=== PATIENT | male | born 1980 | race Caucasian/White ===

== ENCOUNTER 2022-04-17 10:13 | Outpatient (REF) | payer OTHER, SELFPAY ==
[2022-04-17 12:57] VITALS: O2SAT 95
== END 2022-04-17 10:14 | disposition home or self-care (01) ==
LOC: HO.LAB 10:13
PROVIDERS: PCP Internal Medicine; Visit Provider Psychiatry & Neurology Neurology
DX: R42 Dizziness and giddiness (principal); E66.9 Obesity, unspecified; G43.119 Migraine with aura, intractable, without status migrainosus; G47.33 Obstructive sleep apnea (adult) (pediatric)
CPT/HCPCS: 36600; 82803; 99202

== ENCOUNTER → 2022-05-27 19:30 | Outpatient (REF) | payer MEDICARE, MEDICAID, SELFPAY | LOC: HO.SL 19:30 | PROVIDERS: PCP Internal Medicine; Visit Provider Psychiatry & Neurology Neurology | DX: E66.9 Obesity, unspecified (principal); G47.33 Obstructive sleep apnea (adult) (pediatric) | CPT/HCPCS: 95811 ==

== ENCOUNTER 2022-11-16 14:37 | Outpatient (AMB) | payer MEDICARE, MEDICAID, SELFPAY ==
[2022-11-16 14:40] VITALS: PULSE 91; O2SAT 93; BMI 62.0
--- NOTE | 2022-11-16 14:40 | MHC.OFFVIS ---
Intake Vital Signs 11/16/22 14:40 Height 5 ft 8 in Weight 407 lb 8 oz BMI 62.0 Position Sitting Pulse 91 Pulse Source Pulse Oximeter Pulse Oximetry (%) 93 Oxygen Delivery Method Room Air Intake Visit Reasons: 2m follow up dizziness - LVM Intake Note: Pt presents as a 2 month f/u for dizziness. Adaptive Physical Education Teacher Required: No Allergies ibuprofen Allergy (Intermediate, Verified 11/16/22 14:44) dermatitis chlorine Allergy (Uncoded 11/16/22 14:44) Rash HPI HPI Comments History of Present Illness Details 42 y/o male patient presents for follow up of sleep study. The split sleep study result was significant for severe degree of sleep apnea. The AHI was 72/hr and oxygen danny was 83%. Pt started CPAP but returned it, he did not toleate the CPAP. Sent new CPAP prescription with mask fitting session but pt did not responded. and the CPAP order was canceled. Pt did not remember anything he got letter from [facility]. Pt does not want to retry CPAP at this time. Pt is referred to management, but not started yet. He is an appointment with his dentist 12/17 Pt does not want to refer ENT for surgery option. [facility] Medical History Alcohol abuse Cholelithiasis DVT (deep venous thrombosis) Obesity Pulmonary embolism Restless legs syndrome (RLS) Surgical History H/O colonoscopy H/O shoulder surgery History of laparoscopic cholecystectomy History of surgery on lower extremity History of tonsillectomy Family History Mother Diabetes Father Diabetes Hypertension Stroke Maternal Grandmother Colon cancer Paternal Grandfather Lung cancer Social History (Updated 11/16/22 @ 14:45 by Sharon Thorpe CMA) Alcohol intake: current Alcohol intake frequency: holidays/special occasions only Patient Tobacco Use Status: Former Tobacco user Substance Use Type: Marijuana Review of Systems Const All systems reviewed & are unremarkable except as noted in HPI and below Physical Exam Vital Signs: Last Vital Signs Pulse 91 11/16/22 14:40 Pulse Ox 93 11/16/22 14:40 Oxygen Delivery Method Room Air 11/16/22 14:40 BMI result Body Mass Index 62.0 Const General: cooperative Nutritional Appearance: obese morbidly obese Orientation/consciousness: patient oriented x3 Limitations: physical limitations and ambulation with cane HEENT Head: Yes normal to inspection and No normocephalic Neck Neck: Yes no meningeal signs Neuro General: patient oriented x3, tone normal, moves all extremities, no meningeal signs and no focal motor deficits Cranial nerves: Yes Facial sensation intact/muscles of mastication intact, Yes Bilaterally intact EOM present, Yes Nystagmus not present, Yes Normal facial strength present and Yes Midline tongue present Cognition (Neuro): normal cognition Gait exam (Neuro): Antalgic gait present and Ataxic gait present Motor exam (neuro): 5/5 motor strength present throughout and Normal motor muscle tone present throughout Deep tendon reflexes (DTR's): Right triceps reflex intensity grade: 1+, Left triceps reflex intensity grade: 1+, Rt Biceps (C5, C6): 1+, Left biceps reflex intensity grade: 1+, Right brachioradialis reflex intensity grade: 1+, Left brachioradialis reflex intensity grade: 1+, Right patellar reflex intensity grade: 0 and Left patellar reflex intensity grade: 0 Assessment & Plan Assessment & Plan (1) Obstructive sleep apnea: Code(s): G47.33 - Obstructive sleep apnea (adult) (pediatric) Plan Continue to follow up with wt managment. Advised patient to sleep on his side, or use extra pillows to elevate his head when he sleep. Refer patient to dental sleep medicine to try oral appliance to treat NARAYAN. Coding Level of Care Code Est Pt Level 3 (39485) Diagnoses Obstructive sleep apnea G47.33
== END 2022-11-16 15:03 | disposition home or self-care (01) ==
PROVIDERS: Visit Provider Nurse Practitioner Family
DX: G47.33 Obstructive sleep apnea (adult) (pediatric) (principal)
CPT/HCPCS: 99213

== ENCOUNTER → 2022-11-16 14:37 | Outpatient (BNVA) | payer MEDICARE, MEDICAID, SELFPAY | PROVIDERS: Visit Provider Nurse Practitioner Family | DX: G47.33 Obstructive sleep apnea (adult) (pediatric) (principal) | CPT/HCPCS: 99212 ==

== ENCOUNTER 2023-05-19 14:25 | Outpatient (AMB) | payer OTHER, SELFPAY ==
--- NOTE | 2023-05-19 14:45 | A.OFFVIS_ITS ---
Intake Vital Signs 05/19/23 14:50 Height 5 ft 8 in Weight 365 lb 6 oz BMI 55.5 BP 130/80 Blood Pressure Location Lt brachial Position Sitting Pulse 60 Pulse Source Pulse Oximeter Pulse Oximetry (%) 96 Oxygen Delivery Method Room Air Intake Visit Reasons: 6m follow up dizziness-LVM Intake Note: Patient presents for six month F/U for dizziness. 'Still getting dizzy x2 a week with meds and still having migraines x1 a week with meds. Allergies ibuprofen Allergy (Intermediate, Verified 05/19/23 14:48) dermatitis chlorine Allergy (Uncoded 11/16/22 14:44) Rash HPI HPI Comments History of Present Illness Details 42 y/o male patient presents for follow up of NARAYAN. Pt reports he changed his diet, and lost 40 lb. Pt started CPAP but returned it, he did not toleate the CPAP. Sent new CPAP prescription with mask fitting session but pt did not responded. and the CPAP order was canceled. Pt did not remember anything he got letter from [facility]. Pt does not want to retry CPAP at this time. Pt reports he has migraine once a week, throbbing pain on his top of head. He also has constant neck pain, too due to herniated disc. [facility] Medical History Alcohol abuse Cholelithiasis DVT (deep venous thrombosis) Obesity Pulmonary embolism Restless legs syndrome (RLS) Surgical History History of tonsillectomy H/O colonoscopy History of surgery on lower extremity H/O shoulder surgery History of laparoscopic cholecystectomy Family History Mother Diabetes Father Diabetes Hypertension Stroke Maternal Grandmother Colon cancer Paternal Grandfather Lung cancer Social History Alcohol intake: current Alcohol intake frequency: holidays/special occasions only Patient Tobacco Use Status: Former Tobacco user Substance Use Type: Marijuana Review of Systems Const All systems reviewed & are unremarkable except as noted in HPI and below Physical Exam Vital Signs: Last Vital Signs Pulse 60 05/19/23 14:50 BP 130/80 05/19/23 14:50 Pulse Ox 96 05/19/23 14:50 Oxygen Delivery Method Room Air 05/19/23 14:50 BMI result Body Mass Index 55.5 Const General: cooperative Nutritional Appearance: obese morbidly obese Orientation/consciousness: patient oriented x3 Limitations: physical limitations and ambulation with cane HEENT Head: Yes normal to inspection and No normocephalic Neck Neck: Yes no meningeal signs Neuro General: patient oriented x3, tone normal, moves all extremities, no meningeal signs and no focal motor deficits Cranial nerves: Yes Facial sensation intact/muscles of mastication intact, Yes Bilaterally intact EOM present, Yes Nystagmus not present, Yes Normal facial strength present and Yes Midline tongue present Cognition (Neuro): normal cognition Gait exam (Neuro): Antalgic gait present and Ataxic gait present Motor exam (neuro): 5/5 motor strength present throughout and Normal motor muscle tone present throughout Deep tendon reflexes (DTR's): Right triceps reflex intensity grade: 1+, Left triceps reflex intensity grade: 1+, Rt Biceps (C5, C6): 1+, Left biceps reflex intensity grade: 1+, Right brachioradialis reflex intensity grade: 1+, Left brachioradialis reflex intensity grade: 1+, Right patellar reflex intensity grade: 0 and Left patellar reflex intensity grade: 0 Assessment & Plan Assessment & Plan (1) Obstructive sleep apnea: Code(s): G47.33 - Obstructive sleep apnea (adult) (pediatric) (2) Migraine with aura, intractable, without status migrainosus: Code(s): G43.119 - Migraine with aura, intractable, without status migrainosus Plan Continue to follow up with patient observation assistant for wt loss. Advised patient to sleep on his side, or use extra pillows to elevate his head when he sleep. Refer patient to dental sleep medicine to try oral appliance to treat NARAYAN. Advised patient to continue to take magnesium 400 mg qHS and vitmian B 2 400 mg daily for migraine prevention. Continue to use sumatriptan 100 mg as needed at onset of migraine. Orders: Referrals Dentistry Referral G47.33 - Obstructive sleep apnea (adult) (pediatric) Medications: Changed From riboflavin (vitamin B2) 400 mg PO QAM 30 tabs 6RF To riboflavin (vitamin B2) 400 mg PO QAM 90 tabs 3RF 90 days Coding Level of Care Code Est Pt Level 3 (96452) Diagnoses Obstructive sleep apnea G47.33 Migraine with aura, intractable, without status migrainosus G43.119
[2023-05-19 14:50] VITALS: BP 130/80; PULSE 60; O2SAT 96; BMI 55.5
== END 2023-05-19 15:09 | disposition home or self-care (01) ==
PROVIDERS: PCP Internal Medicine; Visit Provider Nurse Practitioner Family
DX: G47.33 Obstructive sleep apnea (adult) (pediatric) (principal); G43.119 Migraine with aura, intractable, without status migrainosus
CPT/HCPCS: 99213

== ENCOUNTER → 2023-05-19 14:25 | Outpatient (BNVA) | payer OTHER, MEDICAID, SELFPAY | PROVIDERS: PCP Internal Medicine; Visit Provider Nurse Practitioner Family | DX: G47.33 Obstructive sleep apnea (adult) (pediatric) (principal); G43.119 Migraine with aura, intractable, without status migrainosus | CPT/HCPCS: 99212 ==

== ENCOUNTER 2024-02-18 08:26 | Outpatient (AMB) | payer OTHER, SELFPAY ==
--- NOTE | 2024-02-18 08:25 | A.OFFVIS_ITS ---
Vital Signs 02/18/24 08:26 Height 5 ft 8 in Weight 339 lb BMI 51.5 BP 134/90 H Blood Pressure Location Lt brachial Position Sitting Pulse 65 Pulse Oximetry (%) 94 Oxygen Delivery Method Room Air Intake Visit Reasons: 4 mnts f/u Personal Vehicle Advisor Required: No Accompanied by: Self / Same As Patient Allergies ibuprofen Allergy (Intermediate, Verified 02/18/24 08:28) dermatitis chlorine Allergy (Uncoded 11/16/22 14:44) Rash Medication List - Last Reconciled 02/18/24 by CINDY Wong diclofenac sodium 1% 2 grams topical QID gabapentin 300 mg PO BEDTIME hydroxyzine pamoate 100 mg PO BEDTIME magnesium oxide 400 mg PO BEDTIME omeprazole 20 mg PO DAILY oxcarbazepine 150 mg PO BID riboflavin (vitamin B2) 400 mg PO QAM 90 days ropinirole 2 mg PO BEDTIME sumatriptan succinate 100 mg PO Q2-4H PRN 30 days torsemide 20 mg PO DAILY warfarin 5 mg PO DAILY zolpidem 10 mg PO BEDTIME PRN HPI Comments Details: 43-yr-old male presents for f/u visit of migraine and sleep s/s. Pt was previously seen by our former colleague, Demetrio Chavez NP. Pt denies any significant interval medical changes. He reports he generally does not sleep well, usually 3 hrs a night or no sleep at all. He has chronic nasal congestion. Working with a manager endoscopy through [employer]- and has lost 90 lbs. He is doing some light exercise- as he has back and knee pains. Does use ropinirole for RLS, which is helpful. Does have a h/o compulsiveness at times. Uses ambien at times- denies parasomnias, but then today realizes that he has slept shopped on-line. Pt reports he is having 4-5 migraine attacks per week, lasting 1 hr to 6 hrs. Sumatriptan is not always effective even w/ taking the 2nd dose. Baseline headache characteristics: Variable. Can be in eyes, temples, forehead, or occipital. Throbbing and pressure. A/w blurred vision, diplopia, foggy vision, photophobia, some osmophobia, nausea, occasional vomiting, confusion, external spinning dizziness, sometimes worsening nasal congestion, activity intolerance- depending on severity. Duration can be hours up to 7 days. [facility] Medical History Cholelithiasis DVT (deep venous thrombosis) Pulmonary embolism Alcohol abuse Restless legs syndrome (RLS) Obesity Surgical History History of tonsillectomy H/O colonoscopy History of surgery on lower extremity H/O shoulder surgery History of laparoscopic cholecystectomy Family History Mother Diabetes Father Diabetes Hypertension Stroke Maternal Grandmother Colon cancer Paternal Grandfather Lung cancer Social History Alcohol intake: current Alcohol intake frequency: holidays/special occasions only Patient Tobacco Use Status: Former Tobacco user Substance Use Type: Marijuana Physical Exam Vital Signs: Last Vital Signs Pulse 65 02/18/24 08:26 BP 134/90 H 02/18/24 08:26 Pulse Ox 94 02/18/24 08:26 Oxygen Delivery Method Room Air 02/18/24 08:26 BMI result Body Mass Index 51.5 Const General: cooperative and no acute distress Orientation/consciousness: patient oriented x3 Resp Effort & Inspection: normal respiratory effort and able to speak in complete sentences Neuro Other: Gait slow to stand, slow steady gait General: patient oriented x3 Cranial nerves: Yes CN's II-XII intact bilaterally Cognition (Neuro): normal cognition Psych Appearance: grossly normal Mental Status: mental status grossly normal Speech and movement: Normal speech and movement present Affect: normal affect Attitude: cooperative Assessment & Plan Assessment & Plan (1) Obstructive sleep apnea: Code(s): G47.33 - Obstructive sleep apnea (adult) (pediatric) Category: Medical (2) Chronic nasal congestion: Code(s): R09.81 - Nasal congestion Category: Medical (3) Chronic migraine without aura: Code(s): G43.709 - Chronic migraine without aura, not intractable, without status migrainosus Category: Medical Plan For NARAYAN and RLS and sleep difficulties: Pt advised to undergo ENT consult for alternate tx's for severe NARAYAN in setting of chronic nasal congestion (previous allergy testing neg). May continue ropinirole and prn ambien for now- Pt advised dopamine agonist can cause/increase compulsive behaviors, thus to monitor sleep shopping and for any increase in compulsivity. Reviewed general sleep education principles, including simple strategies to optimize sleep hygiene and sleep quality. List of sleep resources shared w/pt, such as the book Say Manjit to Insomnia by Dr Pj Powers. For overall headache management: Discussed importance of good self-care, including but not limited to maintaining a healthy diet, adequate fluid intake, adequate sleep, and engaging in regular physical activity. For acute headache treatment: Discussed importance of taking acute medications at the first sign of headache, however stressed importance of avoiding acute medication overuse (especially with combined headache medications). Stop Sumatriptan d/t pt has h/o a-fib, HTN. Trial Ubrogepant (Ubrelvy) 100mg tab, 1/2 - 1 tab (50-100mg) at onset of headache, may repeat in 2 hours. Max of 2 tabs (200mg) per 24 hours. May adjunct with OTC Tylenol 650mg q 4 hours, Ibuprofen 600mg q 6 hours, or Naproxen 440mg q 12 hrs prn. Do not take w/ Butalbital (Fioricet or Fiorinal). Potential adverse effects, include but are not limited to fatigue, nausea, dry mouth, constipation. Previous acute migraine medication trials: Sumatriptan- not always effective. Acute migraine medication contraindications: All triptans and DHE d/t h/o a-fib, DVTs/PE, HTN. For headache prevention medication: Discussed that preventative medications should be taken routinely as prescribed for best effect, it may take several weeks for full effect to take effect. Continue Riboflavin 400mg qam Continue Magnesium 400mg qhs Trial Topiramate 25-50mg qhs. Potential adverse effects of Topiramate, include but are not limited to fatigue, cognitive changes, paresthesias (tingling), vision changes, kidney stones. May continue Gabapentin 300mg qhs- for sleep and headache. Previous migraine prevention medication trials: none other Migraine prevention medication contraindications: would be cautious w/ any tx that may induce wt gain- as pt is actively participating in a wt loss program. Orders: Referrals Ear/Nose/Throat Referral G47.33 - Obstructive sleep apnea (adult) (pediatric), R09.81 - Nasal congestion Medications: New ubrogepant (Ubrelvy) take at onset of migraine, may repeat in 2hrs (may take w/ Tylenol) 50 - 100 mg (0.5 - 1 x 100 mg) PO ONCE PRN 16 tabs 3RF migraine headache 30 days topiramate 25 - 50 mg (1 - 2 x 25 mg) PO BEDTIME 60 tabs 3RF 30 days Coding Level of Care Code Est Pt Level 4 (87993) Diagnoses Obstructive sleep apnea G47.33 Chronic nasal congestion R09.81 Chronic migraine without aura G43.709
[2024-02-18 08:26] VITALS: BP 134/90; PULSE 65; O2SAT 94; BMI 51.5
== END 2024-02-18 09:39 | disposition home or self-care (01) ==
PROVIDERS: Absent Provider Nurse Practitioner Family; PCP Internal Medicine; Visit Provider Nurse Practitioner Family
DX: G47.33 Obstructive sleep apnea (adult) (pediatric) (principal); R09.81 Nasal congestion; G43.709 Chronic migraine without aura, not intractable, without status migrainosus
CPT/HCPCS: 99214

== ENCOUNTER → 2024-02-18 08:26 | Outpatient (BNVA) | payer OTHER, SELFPAY | PROVIDERS: Absent Provider Nurse Practitioner Family; PCP Internal Medicine; Visit Provider Nurse Practitioner Family | DX: G47.33 Obstructive sleep apnea (adult) (pediatric) (principal); G43.709 Chronic migraine without aura, not intractable, without status migrainosus; R09.81 Nasal congestion | CPT/HCPCS: 99212 ==

== ENCOUNTER 2024-05-29 07:43 | Outpatient (AMB) | payer OTHER, SELFPAY ==
--- NOTE | 2024-05-29 07:43 | MHC.OFFVIS ---
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 Accompanied by: Self / Same As Patient Allergies ibuprofen Allergy (Intermediate, Verified 02/18/24 08:28) dermatitis chlorine Allergy (Uncoded 11/16/22 14:44) Rash Medication List - Last Reconciled 05/29/24 by CINDY Wong diclofenac sodium 1% 2 grams topical QID gabapentin 300 mg PO BEDTIME 90 days hydroxyzine pamoate 100 mg PO BEDTIME lurasidone 40 mg PO DAILY magnesium oxide 400 mg PO BEDTIME 90 days omeprazole 20 mg PO DAILY oxcarbazepine 450 mg PO BID riboflavin (vitamin B2) 400 mg PO QAM 90 days ropinirole 2 mg PO BEDTIME topiramate 50 - 100 mg (1 - 2 x 50 mg) PO BEDTIME 90 days torsemide 20 mg PO DAILY ubrogepant (Ubrelvy) 50 - 100 mg (0.5 - 1 x 100 mg) PO ONCE PRN 30 days warfarin 5 mg PO DAILY zolpidem 10 mg PO BEDTIME PRN Do you need a note to return to daycare/school/sports/work: No HPI Comments Details: 43-yr-old male presents for f/u televeideo visit of migraine and sleep s/s. Pt denies any significant interval medical changes. He reports he generally his sleep varies. If he does not take his sleep medications, he will sleep 3-4 hours max. With his sleep medication, he can sleep up to 7 hrs- sometimes this feels like enough or sometimes not enough. He has chronic nasal congestion. He has not heard from the ENT office. 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 He is doing some light exercise- as he has back and knee pains. He has a PCP appt in 4 days to discuss a recent fall- slipped on his rug and twisted his left ankle- heard a pop, and also hurt his back and his knee. He describes his RLS S/S as urge to move the legs, almost to the point he shaking, creepy-crawling sensation, leg cramps, in need to get up and move. He has not had recent nutritional, iron studies, ferritin, labs in some time. He is on chronic warfarin therapy. Does use ropinirole 2mg qhs for RLS, which is helpful. Does have compulsive shopping at times. Using Gabapentin 300mg qhs for pain. Uses ambien at times- does not report recent parasomnias, but in the past has slept shopped on-line. Patient reports he is having less headaches. Pt reports he is having 3-4 migraine attacks per week, lasting 1 hr to 6 hrs. The migraine attack are his typical migraine, the pain tends to be in the back of his head, may be bilateral or more right sided. He started topiramate 25 mg q.h.s., tolerating well. He has started Ubrelvy, and states that it is more effective then the sumatriptan. Baseline headache characteristics: Variable. Can be in eyes, temples, forehead, or occipital. Throbbing and pressure. A/w blurred vision, diplopia, foggy vision, photophobia, some osmophobia, nausea, occasional vomiting, confusion, external spinning dizziness, sometimes worsening nasal congestion, activity intolerance- depending on severity. Duration can be hours up to 7 days. [facility] Medical History Cholelithiasis DVT (deep venous thrombosis) Pulmonary embolism Alcohol abuse Restless legs syndrome (RLS) Obesity Surgical History History of tonsillectomy H/O colonoscopy History of surgery on lower extremity H/O shoulder surgery History of laparoscopic cholecystectomy Family History Mother Diabetes Father Diabetes Hypertension Stroke Maternal Grandmother Colon cancer Paternal Grandfather Lung cancer Social History Alcohol intake: current Alcohol intake frequency: holidays/special occasions only Patient Tobacco Use Status: Former Tobacco user Substance Use Type: Marijuana Physical Exam Vital Signs: BMI result Body Mass Index 50.2 Const General: cooperative and no acute distress Orientation/consciousness: patient oriented x3 Resp Effort & Inspection: normal respiratory effort and able to speak in complete sentences Neuro General: patient oriented x3 Cognition (Neuro): normal cognition Psych Appearance: grossly normal Mental Status: mental status grossly normal Speech and movement: Normal speech and movement present Affect: normal affect Attitude: cooperative Telehealth Telehealth Telehealth Platform: [employer] Location of provider rendering services: practice address Location of patient: address on file Patient Identification confirmed using: Name, : Yes Telehealth method: video Patient verbally consented to treatment: Yes Patient verbally consented to billing insurance company: Yes Patient informed of any privacy concerns related to visit: Yes Minutes spent on Phone/Video with Pt.: 25 Assessment & Plan Assessment & Plan (1) Obstructive sleep apnea: Code(s): G47.33 - Obstructive sleep apnea (adult) (pediatric) Category: Medical (2) Chronic nasal congestion: Code(s): R09.81 - Nasal congestion Category: Medical (3) Chronic migraine without aura: Code(s): G43.709 - Chronic migraine without aura, not intractable, without status migrainosus Category: Medical (4) Restless legs syndrome (RLS): Code(s): G25.81 - Restless legs syndrome Category: Medical Plan For NARAYAN and RLS and sleep difficulties: We will follow-up on referral for ENT consult for alternate tx's for severe NARAYAN in setting of chronic nasal congestion (previous allergy testing neg). May continue gabapentin 300 mg q.h.s., ropinirole 2 mg q.h.s., and prn ambien 10 mg q.h.s. for now- Pt advised dopamine agonist can cause/increase compulsive behaviors, and zolpidem can increase risk for parasomnia- continueto monitor sleep shopping and for any increase in compulsive behaviors. We will mail patient a list of sleep resources, which includes information on recent a.m. publication ? Navigating life with restless leg ?by Dr. Cote. Check labs for common etiologies of RLS. Future considerations: Zepbound- would need referral to weight management clinic. For overall headache management: Discussed importance of good self-care, including but not limited to maintaining a healthy diet, adequate fluid intake, adequate sleep, and engaging in regular physical activity. For acute headache treatment: Continue Ubrogepant (Ubrelvy) 100mg tab, 1/2 - 1 tab (50-100mg) at onset of headache, may repeat in 2 hours. Max of 2 tabs (200mg) per 24 hours. May adjunct with OTC Tylenol 650-1000mg q 4-6 hours prn. Previous acute migraine medication trials: Sumatriptan- not always effective. Acute migraine medication contraindications: All triptans and DHE d/t h/o a-fib, DVTs/PE, HTN. For headache prevention medication: Discussed that preventative medications should be taken routinely as prescribed for best effect, it may take several weeks for full effect to take effect. Continue Riboflavin 400mg qam Continue Magnesium 400mg qhs Increase Topiramate 25 mg. q.h.s. 50-100 mg q.h.s- then would not increase further duet to history nephrolithiasis. Potential adverse effects of Topiramate, include but are not limited to fatigue, cognitive changes, paresthesias (tingling), vision changes, kidney stones. May continue Gabapentin 300mg qhs- for sleep and headache. Previous migraine prevention medication trials: none other Migraine prevention medication contraindications: would be cautious w/ any tx that may induce wt gain- as pt is actively participating in a wt loss program. Orders: Orders Complete Blood Count Auto Diff Today E66.9 - Obesity, unspecified, G25.81 - Restless legs syndrome, R20.2 - Paresthesia of skin, R53.83 - Other fatigue, Z79.01 - manager long term care (current) use of anticoagulants IRON PROFILE Today E66.9 - Obesity, unspecified, G25.81 - Restless legs syndrome, R20.2 - Paresthesia of skin, R53.83 - Other fatigue, Z79.01 - manager long term care (current) use of anticoagulants Ferritin Today E66.9 - Obesity, unspecified, G25.81 - Restless legs syndrome, R20.2 - Paresthesia of skin, R53.83 - Other fatigue, Z79.01 - skilled nursing (current) use of anticoagulants Vitamin B12 Today E66.9 - Obesity, unspecified, G25.81 - Restless legs syndrome, R20.2 - Paresthesia of skin, R53.83 - Other fatigue, Z79.01 - skilled nursing (current) use of anticoagulants Vitamin B1 Today E66.9 - Obesity, unspecified, G25.81 - Restless legs syndrome, R20.2 - Paresthesia of skin, R53.83 - Other fatigue, Z79.01 - manager long term care (current) use of anticoagulants Folate Today E66.9 - Obesity, unspecified, G25.81 - Restless legs syndrome, R20.2 - Paresthesia of skin, R53.83 - Other fatigue, Z79.01 - manager long term care (current) use of anticoagulants Magnesium Today E66.9 - Obesity, unspecified, G25.81 - Restless legs syndrome, R20.2 - Paresthesia of skin, R53.83 - Other fatigue, Z79.01 - manager long term care (current) use of anticoagulants Erythrocyte Sedimentation Rate Today E66.9 - Obesity, unspecified, G25.81 - Restless legs syndrome, R20.2 - Paresthesia of skin, R53.83 - Other fatigue, Z79.01 - manager long term care (current) use of anticoagulants Vitamin D 25-OH (D2 and D3) Today E66.9 - Obesity, unspecified, G25.81 - Restless legs syndrome, R20.2 - Paresthesia of skin, R53.83 - Other fatigue, Z79.01 - skilled nursing (current) use of anticoagulants Comprehensive Met. Panel Today E66.9 - Obesity, unspecified, G25.81 - Restless legs syndrome, R20.2 - Paresthesia of skin, R53.83 - Other fatigue, Z79.01 - manager long term care (current) use of anticoagulants Vitamin B6 Today E66.9 - Obesity, unspecified, G25.81 - Restless legs syndrome, R20.2 - Paresthesia of skin, R53.83 - Other fatigue, Z79.01 - manager long term care (current) use of anticoagulants Hemoglobin A1c Today E66.9 - Obesity, unspecified, G25.81 - Restless legs syndrome, R20.2 - Paresthesia of skin, R53.83 - Other fatigue, Z79.01 - skilled nursing (current) use of anticoagulants TSH reflex Free T4 Today E66.9 - Obesity, unspecified, G25.81 - Restless legs syndrome, R20.2 - Paresthesia of skin, R53.83 - Other fatigue, Z79.01 - manager long term care (current) use of anticoagulants CRP High Sensitivity Today E66.9 - Obesity, unspecified, G25.81 - Restless legs syndrome, R20.2 - Paresthesia of skin, R53.83 - Other fatigue, Z79.01 - manager long term care (current) use of anticoagulants Medications: New topiramate 50 - 100 mg (1 - 2 x 50 mg) PO BEDTIME 90 days 180 tabs 1RF Changed From gabapentin 300 mg PO BEDTIME 30 caps 6RF To gabapentin 300 mg PO BEDTIME 90 days 90 caps 1RF From magnesium oxide 400 mg PO BEDTIME 30 tabs 6RF To magnesium oxide 400 mg PO BEDTIME 90 days 90 tabs 3RF Refilled ubrogepant (Ubrelvy) take at onset of migraine, may repeat in 2hrs (may take w/ Tylenol) 50 - 100 mg (0.5 - 1 x 100 mg) PO ONCE 30 days PRN 16 tabs 6RF migraine headache Discontinued topiramate Discontinued Reason: Doctor's Order 25 - 50 mg (1 - 2 x 25 mg) PO BEDTIME 30 days 60 tabs 3RF Coding Level of Care Code Tele Est Pt Level 4 (08589) Diagnoses Obstructive sleep apnea G47.33 Chronic nasal congestion R09.81 Chronic migraine without aura G43.709 Restless legs syndrome (RLS) G25.81
--- OUTSIDE RECORDS SUMMARY | 2024-05-29 07:45 | XMS_ITS | Encounter Summary ---
Author Organization [facility] Address [address] [place] [address] Care Team Providers Care Medical Parasitologist Name Role Phone Latoya Schmidt DO Primary Care Provider [phone] Encounter Details Date Type Department Care Team (Latest Contact Info) Description 05/19/2024 Anticoagulation - Warfarin Visit Coumadin Clinic [facility] [address] [place] [address] Haylie Copeland LPN Deep vein thrombosis (DVT) of lower extremity, unspecified chronicity, unspecified laterality, unspecified vein (CMS/HCC) (Primary Dx); Pulmonary embolism and infarction (CMS/HCC) Social History Tobacco Use Types Packs/Day Years Used Date Smoking Tobacco: Former Cigarettes Smokeless Tobacco: Never Alcohol Use Standard Drinks/Week Comments Yes 0 (1 standard drink = 0.6 oz pur e alcohol) Sex and Gender Information Value Date Recorded Sex Assigned at Not on file Gender Identity Not on file Sexual Orientation Not on file Job Start Date Occupation Industry Not on file Not on file Not on file documented as of this encounter Plan of Treatment Upcoming Encounters Date Type Department Care Team (Late st Contact Info) Description 06/02/2024 2:45 PM EST Office Visit Internal Medicine - [address] [phone] Aida Rubio NP [address] [place], [place] documented as of this encounter Visit Diagnoses Diagnosis Deep vein thrombosis (DVT) of lower extremity, unspecified chronicity, unspecified laterality, unspecified vein (CMS/HCC)- Primary Pulmonary embolism and infarction (CMS/HCC) Other pulmonary embolism and infarction documented in this encounter Care Teams Medical Parasitologist Relationship Specialty Start Date End Date Latoya Schmidt DO [address] [facility] [place] [address] PCP - General 11/17/22 documented as of this encounter
--- OUTSIDE RECORDS SUMMARY | 2024-05-29 07:45 | XMS_ITS | Encounter Summary ---
Author Organization [facility] Address [address] [place] [address] Care Team Providers Care Intelligence Manager Name Role Phone Latoya Schmidt DO Primary Care Provider Reason for Visit * Reason Onset Date Comments Coagulation Disorder 05/19/2024 Non consist ent Inr's Has a short range 2.5-3.00 Abnormal Lab 05/19/2024 Encounter Details Date Type Department Care Team (Late st Contact Info) Description 05/19/2024 Telephone Coumadin Clinic [facility] [address] [place] [address] Haylie Copeland LPN Coagulation Disorder (Non consistent Inr's Has a short range 2.5-3.00 ); Abnormal Lab Social History Tobacco Use Types Packs/Day Years [...] on file documented as of this encounter Progress Notes * Aida Rubio NP - 05/19/2024 1:55 PM EST Would still target INR 2.5- 3.0. Might be due to his diet * Haylie Copeland LPN - 05/19/2024 1:37 PM EST Patient has an appointment 06/02/2024 He has a hx of non consistent Inr's He has a short range 2.5-3.00 I am not sure of the reasoning Is there any counter indications for increasing the range 2.5-3.5 ? PE / DVT Please advise documented in this encounter Plan of Treatment Upcoming Encounters Date Type Department Care Team (Late st Contact Info) Description 06/02/2024 2:45 PM EST [facility] [address] [place] [address] Aida Rubio, CRISTI [address] [place] [address] documented as of this encounter Visit Diagnoses Not on filedocumented in this encounter Care Teams Intelligence Manager Relationship Specialty Start Date End Date Latoya Schmidt DO [address] [place] [id number] PCP - General 11/17/22 documented as of this encounter
--- OUTSIDE RECORDS SUMMARY | 2024-05-29 07:45 | XMS_ITS | Clinical Summary ---
Author Organization [address] Address [address] [place] [phone] Phone Care Team Providers Care Branch Services Manager Name Role Phone Leigh Schmidta Primary Care Provider [phone] Allergies Active Allergy Reactions Criticality Noted Date Comments Chlorine 05/27/2016 Ibuprofen Dermatitis,Rash 01/05/2020 Medications Medication Sig Dispensed Refills Start Date End Date Status gabapentin (NEURONTIN) 300 mg capsule Take 1 Capsule by mouth at bedtime. 09/14/2022 Active hydrOXYzine pamoate (VISTARIL) 50 mg capsule Take 1 Capsule by mouth at bedtime. 09/14/2022 Active hydrOXYzine pamoate (VISTARIL) 25 mg capsule Take 1 Capsule by mouth at bedtime. 09/14/2022 Active magnesium oxide (MAG-OX) 400 mg (241.3 elemental magnesium) tablet TAKE 1 TABLET BY MOUTH AT BEDTIME 08/13/2022 Active SUMAtriptan (IMITREX) 25 mg tablet Take 1 tablet (25 mg total) by mouth as needed. 08/19/2022 Active OXcarbazepine (TRILEPTAL) 300 mg tablet Take 1 tablet (300 mg total) by mouth 2 (two) times a day. 09/14/2022 Active OXcarbazepine (TRILEPTAL) 150 mg tablet Take 1 tablet (150 mg total) by mouth 2 (two) times a day. 09/14/2022 Active rOPINIRole (REQUIP) 1 mg tablet Take 1 Tablet by mouth at bedtime. 09/14/2022 Active torsemide (DEMADEX) 20 mg tablet Take 1 tablet (20 mg total) by mouth 1 (one) time each day. 08/14/2022 Active lurasidone (LATUDA) 20 mg tablet Take 20 mg by mouth daily. 09/14/2022 Active diclofenac (VOLTAREN) 1 % topical gel Apply 1 g topically 3 times daily. 12/13/2021 Active warfarin (COUMADIN) 5 mg tablet TAKE 1&1/2 TO 2 TABLETS BY MOUTH DAILY. DIRECTED. 180 tablet 1 03/20/2024 Active Active Problems Problem Noted Date Diagnosed Date Morbid obesity with BMI of 50.0-59.9, adult 07/2023 Obstructive sleep apnea 08/11/2021 Overview (01/28/2024): [facility] Home sleep test 07/24/2021; weight 375; BMI 58. AHI 6. 3 central apnea and 32 hypopneas. Average oxygen saturation 91% with oxygen danny 86%. Obstructive sleep apnea-mild with out nocturnal hypoxemia; mostly hypopneas based on 2021 home sleep test. 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 Obesity 10/14/2005 Encounters Date Type Department Care Team Description 05/19/2024 Telephone Coumadin Clinic [facility] [address] [place] [phone] Haylie Copeland LPN Coagulation Disorder (Non consistent Inr's Has a short range 2.5-3.00 ); Abnormal Lab 05/19/2024 Anticoagulation - Warfarin Visit Coumadin [facility] [address] [place] [phone] Haylie Copeland LPN Deep vein thrombosis (DVT) of lower extremity, unspecified chronicity, unspecified laterality, unspecified vein (CMS/HCC) (Primary Dx); Pulmonary embolism and infarction (CMS/HCC) 05/11/2024 Anticoagulation - Warfarin Visit Coumadin [address] [phone] Haylie Copeland LPN Deep vein thrombosis (DVT) of lower extremity, unspecified chronicity, unspecified laterality, unspecified vein (CMS/HCC) (Primary Dx); Pulmonary embolism and infarction (CMS/HCC) 04/25/2024 Anticoagulation - Warfarin Visit Coumadin [facility] [address] [place] [phone] Haylie Copeland LPN Deep vein thrombosis (DVT) of lower extremity, unspecified chronicity, unspecified laterality, unspecified vein (CMS/HCC) (Primary Dx); Pulmonary embolism and infarction (CMS/HCC) 04/17/2024 Anticoagulation - Warfarin Visit Coumadin [address] [phone] Haylie Copeland LPN Deep vein thrombosis (DVT) of lower extremity, unspecified chronicity, unspecified laterality, unspecified vein (CMS/HCC) (Primary Dx); Pulmonary embolism and infarction (CMS/HCC) 04/06/2024 Anticoagulation - Warfarin Visit Coumadin [address] [phone] Dorothy Anton LPN Deep vein thrombosis (DVT) of lower extremity, unspecified chronicity, unspecified laterality, unspecified vein (CMS/HCC) (Primary Dx); Pulmonary embolism and infarction (CMS/HCC) 04/05/2024 Telephone Internal Medicine - [address] [place], [place] [phone] Latoya Schmidt, Coagulation Disorder 03/22/2024 Anticoagulation - Warfarin Visit Coumadin Clinic [address] [phone] Sadie Galan LPN Deep vein thrombosis (DVT) of lower extremity, unspecified chronicity, unspecified laterality, unspecified vein (CMS/HCC) (Primary Dx); Pulmonary embolism and infarction (CMS/HCC) 03/16/2024 Anticoagulation - Warfarin Visit Coumadin Clinic - [facility] [address] [place], [place] [phone] Haylie Copeland LPN Deep vein thrombosis (DVT) of lower extremity, unspecified chronicity, unspecified laterality, unspecified vein (CMS/HCC) (Primary Dx); Pulmonary embolism and infarction (CMS/HCC) from Last 3 Months Immunizations Name Administration Dates Next Due H1N1 Inj Preservative Free 04/18/2009 Influenza Quadravalent, MDCK , 0.5ml, preservative free (Flucelvax) 6mo and older 01/05/2020 Influenza trivalent, with pr eservative (Fluzone; Afluria) 6mo and older 04/18/2009,01/24/2009 PPD Test 02/23/2005 Td Tetanus diptheria (Tdvax) 7yo and older 01/04 Tdap Tetanus diptheria acell ular pertussis (Boostrix; Adacel) 7yo and older 01/24/2009 Surgical History Surgery Date Site/Laterality Comments CHOLECYSTECTOMY 12/26/2009 PROCEDURE: HISTORICAL CHOLECYSTECTOMY; COMMENT: [facility] SHOULDER SURGERY 06/04/2010 PROCEDURE: HISTORICAL SHOULDER SURGERY; COMMENT: [facility] OTHER SURGICAL HISTORY PROCEDURE: [place] ANES MAJOR LOWER ABDOMINAL VESSELS IVC LIGATION; COMMENT: Charles LEG SURGERY PROCEDURE: HISTORICAL LEG SURGERY; COMMENT: Endovascular Sclerotherapy COLONOSCOPY 11/24/2018 PROCEDURE: HISTORICAL COLONOSCOPY; COMMENT: Visually normal; random biopsies obtained. Terminal ileum totally normal. Biopsies = normal. 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 DX:Other specified congenital anomalies Other pulmonary embolism and infarction 09/13/2006 DX:Other pulmonary embolism and infarction; COMMENT: 08/27/06 Urolithiasis 02/23/2008 DX:Urolithiasis; COMMENT: Pyelonephritis 08/31 AVM (arteriovenous malformation) 03/09/2008 DX:AVM (arteriovenous malformation); COMMENT: Right leg Hematuria 06/15/2008 DX:Hematuria; CO MMENT: [place]; w/u neg 06/04 Family History Medical History Relation Name Comments Diabetes Father Hypertension Father Other: [place], stroke Father Colon cancer Maternal Grandmother Other: inflammatory bowel disease Maternal Grandmother Diabetes Mother Colon cancer Other cousin maternal Lung cancer Paternal Grandfather Blindness Neg Hx Cataracts Neg Hx Glaucoma Neg Hx Macular degeneration Neg Hx Strabismus Neg Hx Relation Name Status Comments Father Maternal Grandmother Mother Other cousin Alive Paternal Grandfather Social History Tobacco Use Types Packs/Day Years [...] file Not on file Not on file Obstetrics History Last Filed Vital Signs Vital Sign Reading Time Taken Comments Blood Pressure 125/80 06/25/2023 2:38 PM EST aut o Pulse 80 06/25/2023 2:38 PM EST Temperature - - Respiratory Rate - - Oxygen Saturation - - Inhaled Oxygen Concentration - - Weight 149 kg (328 lb) 12/07/2023 4:10 PM EDT Height 172.7 cm (5' 8 ) 12/07/2023 4:10 PM EDT Body Mass Index 49.87 12/07/2023 4:10 PM EDT Plan of Treatment Upcoming Encounters Date Type Department Care Team (Late st Contact Info) Description 06/02/2024 2:45 PM EST Office Visit Internal Medicine - [address] [phone] Aida Rubio NP [address] [place] [phone] Health Maintenance Due Date Last Done Comments Hepatitis A Vaccines (1 of 2 - Risk 2-dose series) 1997 Hepatitis B Vaccines (1 of 3 - 19+ 3-dose series) 1997 Colorectal Cancer Screening: Colonoscopy 03/29/2022 Hepatitis C Screening 03/29/2022 Medicare Annual Wellness Visit 03/29/2022 Social Influencers of Health Screening 03/29/2022 COVID-19 Vaccine ( season) 2023 Influenza Vaccine (#1) 2023 0, 01/25/2017, 04/18/2009, Additional history exists Depression Screening 06/24/2024 06/25/2023 Cholesterol Screening (Lipid Panel) 06/24/2028 06/25/2023 DTaP,Tdap,and Td Vaccines (3 - Td or Tdap) 01/04/2030 01/05/2020, 01/24/2009 HIV Screening Completed 12/15/2004 Pneumococcal Vaccine: Pediatrics (0 to 5 Years) and At-Risk Patients (6 to 64 Years) Aged Out 12/31/2013, 03/13/2008 No longer eligibl e based on patient's age to complete this topic HIB Vaccines Aged Out No longer eligi ble based on patient's age to complete this topic HPV Vaccines Aged Out No longer eligi ble based on patient's age to complete this topic IPV Vaccines Aged Out No longer eligi ble based on patient's age to complete this topic MMR Vaccines Aged Out No longer eligi ble based on patient's age to complete this topic Meningococcal ACWY Vaccine Aged Out N o longer eligible based on patient's age to complete this topic RSV Immunization Patients Under 20 months Aged Out No longer eligible based on patient's age to complete this topic Varicella Vaccines Aged Out No longer eligible based on patient's age to complete this topic Procedures Procedure Name Priority Date/Time Associated Diagnosis Comments PROTHROMBIN TIME WITH INR Routine 05/18/2024 2:49 PM EST Deep vein thrombosis (DVT) of lower extremity, unspecified chronicity, unspecified laterality, unspecified vein (CMS/HCC) Pulmonary embolism and infarction (CMS/HCC) PROTHROMBIN TIME WITH INR Routine 05/10/2024 2:47 PM EST Deep vein thrombosis (DVT) of lower extremity, unspecified chronicity, unspecified laterality, unspecified vein (CMS/HCC) Pulmonary embolism and infarction (CMS/HCC) PROTHROMBIN TIME WITH INR Routine 04/25/2024 10:11 AM EST Deep vein thrombosis (DVT) of lower extremity, unspecified chronicity, unspecified laterality, unspecified vein (CMS/HCC) Pulmonary embolism and infarction (CMS/HCC) PROTHROMBIN TIME WITH INR Routine 04/17/2024 1:03 PM EST Deep vein thrombosis (DVT) of lower extremity, unspecified chronicity, unspecified laterality, unspecified vein (CMS/HCC) Pulmonary embolism and infarction (CMS/HCC) PROTHROMBIN TIME WITH INR Routine 04/06/2024 1:36 PM EST Deep vein thrombosis (DVT) of lower extremity, unspecified chronicity, unspecified laterality, unspecified vein (CMS/HCC) Pulmonary embolism and infarction (CMS/HCC) PROTHROMBIN TIME WITH INR Routine 03/22/2024 1:17 PM EST [facility] (current) use of anticoagulants DEPRESSION SCREENING Routine 06/25/2023 LIPID PANEL Routine 06/25/2023 HIV SCREENING Routine 12/15/2004 from Last 3 Months or Most Recently Relevant to Health Maintenance Results * (ABNORMAL) Prothrombin time with INR (05/18/2024 2:49 PM EST) Only the most recent of6 resultswithin the time period is included. Protime 37.3(H) 10.6 - 13.9 sec LAB COAGULATION METHOD 05/18/2024 6:22 PM EST [facility] INR 3.0 LAB COAGULATION METHOD 05/18/2024 6:22 PM EST [facility] Blood Venous blood specimen / Unknown Venipuncture / Unknown 05/18/2024 2:49 PM EST 05/18/2024 2:49 PM EST Latoya Schmidt DO LAB BLOOD ORDERABLES [facility] ([facility] [address] [place] [address], * Depression Screening (06/25/2023) Depression Screening abstracted Historical Provider MD TIJERINA MAINTENYURI E * (ABNORMAL) Lipid panel (06/25/2023) LDL/HDL Ratio 5(A) 0 - 4 Triglycerides 94 0 - 150 mg/dL Cholesterol 195 0 - 200 mg/dL HDL 39(A) 40 mg/dL LDL Cholesterol 138(A) 0 - 100 mg/dL Blood Venous blood specimen / Unknown Historical Provider LAB BLOOD ORDERAB LES * HIV Screening (12/15/2004) HIV Screening abstracted Historical Provider MD TIJERINA MAINMAYNOR E from Last 3 Months or Most Recently Relevant to Health Maintenance Care Teams Branch Services Manager Relationship Specialty Start Date End Date Latoya Schmidt DO [address] [place] [address] PCP - General 11/17/22
--- OUTSIDE RECORDS SUMMARY | 2024-05-29 07:45 | XMS_ITS | Encounter Summary ---
Author Organization [facility] Address [address] [place] [address] Care Team Providers Care Paint Formulator Name Role Phone Latoya Schmidt DO Primary Care Provider [phone] Encounter Details Date Type Department Care Team (Latest Contact Info) Description 04/25/2024 Anticoagulation - Warfarin Visit Coumadin Clinic [facility] [address] [place] [address] Haylie Copeland LPN Deep vein [...] PM EST Office Visit Internal Medicine - [address] [phone] Aida Rubio NP [address] [place], [place] documented as of this encounter Visit Diagnoses Diagnosis Deep vein thrombosis (DVT) of lower extremity, unspecified chronicity, unspecified laterality, unspecified vein (CMS/HCC)- Primary Pulmonary embolism and infarction (CMS/HCC) Other pulmonary embolism and infarction documented in this encounter Care Teams Paint Formulator Relationship Specialty Start Date End Date Latoya Schmidt DO [address] [facility] [place] [address] PCP - General 11/17/22 documented as of this encounter
--- OUTSIDE RECORDS SUMMARY | 2024-05-29 07:45 | XMS_ITS | Clinical Summary ---
Author Organization [facility] Address [address] [address] Care Team Providers Care Tire Building Supervisor Name Role Phone Lady Michelle Primary Care Provider [phone] Social History Tobacco Use Types Packs/Day Years Used Date Smoking Tobacco: Never Assessed Sex and Gender Information Value Date Recorded Sex Assigned at Not on file Legal Sex Male 10:27 AM EDT Gender Identity Not on file Sexual Orientation Not on file Plan of Treatment Health Maintenance Due Date Last Done Comments Hepatitis B Vaccine (1 of 3 - 19+ 3-dose series) 1997 Pneumococcal Vaccine: Pediat rics (0 to 5 Years) and At-Risk Patients (6 to 64 Years) (3 of 3 - PCV) 12/31/2014 12/31/2013, 03/13/2008 Influenza Vaccine (#1) 2023 01/05/2020 Insurance MEDICAID Care Teams Tire Building Supervisor Relationship Specialty Start Date End Date Lady Michelle [address] [place] [address] PCP - General Internal Medicine 11/28/21
--- OUTSIDE RECORDS SUMMARY | 2024-05-29 07:45 | XMS_ITS | Encounter Summary ---
Author Organization [facility] Address [address] [place] [address] Care Team Providers Care Hospitalist Name Role Phone Latoya Schmidt DO Primary Care Provider [phone] Encounter Details Date Type Department Care Team (Latest Contact Info) Description 05/11/2024 Anticoagulation - Warfarin Visit Coumadin Clinic - [address] [phone] Haylie Copeland LPN Deep vein thrombosis (DVT) [...] PM EST Office Visit Internal Medicine - [address] [phone] Aida Rubio NP [address] [place] [address] documented as of this encounter Visit Diagnoses Diagnosis Deep vein thrombosis (DVT) of lower extremity, unspecified chronicity, unspecified laterality, unspecified vein (CMS/HCC)- Primary Pulmonary embolism and infarction (CMS/HCC) Other pulmonary embolism and infarction documented in this encounter Care Teams Hospitalist Relationship Specialty Start Date End Date Latoya Schmidt DO [address] [place], [place] [address] [address] PCP - General 11/17/22 documented as of this encounter
[2024-05-29 07:49] VITALS: BMI 50.2
== END 2024-05-29 15:40 | disposition home or self-care (01) ==
PROVIDERS: PCP Internal Medicine; Visit Provider Nurse Practitioner Family
DX: G47.33 Obstructive sleep apnea (adult) (pediatric) (principal); R09.81 Nasal congestion; G43.709 Chronic migraine without aura, not intractable, without status migrainosus; G25.81 Restless legs syndrome
CPT/HCPCS: 99214

== ENCOUNTER 2024-11-27 07:51 | Outpatient (AMB) | payer OTHER, SELFPAY ==
--- OUTSIDE RECORDS SUMMARY | 2024-11-27 07:54 | XMS_ITS | Encounter Summary ---
Author Organization [facility] Address [address] [place] [id number] Phone Care Team Providers Care Simonizer Name Role Phone Lady Michelle MD Primary Care Provider [phone] Encounter Details Date Type Department Care Team (Late st Contact Info) Description 11/23/2021 Procedure [facility] [address] [place] [address] Social History Tobacco Use Types Packs/Day Years Used Date Smoking Tobacco: Never Smokeless Tobacco: Never Alcohol Use Standard Drinks/Week Comments Yes 0 (1 standard drink = 0.6 oz pur e alcohol) Sex and Gender Information Value Date Recorded Sex Assigned at Male 08/06/2020 1:30 PM EDT Legal Sex Male 8:03 PM EST Gender Identity Male 08/06/2020 1:30 PM EDT Sexual Orientation Straight 09/09/2021 4: 01 PM EDT documented as of this encounter Plan of Treatment Not on file documented as of this encounter Visit Diagnoses Not on filedocumented in this encounter Additional Health Concerns Infection Onset Date Last Indicated Resolved Time CoV-Risk Comment:Per note documentation 11/22/2021 11/22/2021 6:51 AM EDT documented as of this encounter Care Teams Simonizer Relationship Specialty Start Date End Date Lady Michelle MD [address] [place] [address] PCP - General Internal Medicine 07/31/20 documented as of this encounter Additional Source Comments The information contained in this document represents components of the legal health record. It is not the complete legal health record.[facility]
--- OUTSIDE RECORDS SUMMARY | 2024-11-27 07:54 | XMS_ITS ---
Author Name [facility] Organization Unknown Care Team Organization Name Specialty Phone Email Start Date End [facility]en [facility] Lady Michelle Primary Care 03/03/2022 4
--- OUTSIDE RECORDS SUMMARY | 2024-11-27 07:54 | XMS_ITS | Clinical Summary ---
Author Organization [address] Address [address] [place] [phone] Phone Care Team Providers Care Outpatient Surgery Rn Name Role Phone Latoya Schmidt Primary Care Provider [phone] Allergies Active Allergy Reactions Criticality Noted Date Comments Chlorine 05/27/2016 Ibuprofen Dermatitis,Rash 01/05/2020 Medications gabapentin (NEURONTIN) 300 mg capsule Take 1 Capsule by mouth at bedtime. 3 Active hydrOXYzine pamoate (VISTARIL) 50 mg capsule Take 1 Capsule by mouth at bedtime. 3 Active hydrOXYzine pamoate (VISTARIL) 25 mg capsule Take 1 Capsule by mouth at bedtime. 3 Active magnesium oxide (MAG-OX) 400 mg (241.3 elemental magnesium) tablet TAKE 1 TABLET BY MOUTH AT BEDTIME 3 Active OXcarbazepine (TRILEPTAL) 300 mg tablet Take 1 tablet (300 mg total) by mouth 2 (two) times a day. 3 Active OXcarbazepine (TRILEPTAL) 150 mg tablet Take 1 tablet (150 mg total) by mouth 2 (two) times a day. 3 Active rOPINIRole (REQUIP) 1 mg tablet 2 tablets (2 mg total). 3 Active torsemide (DEMADEX) 20 mg tablet Take 1 tablet (20 mg total) by mouth 1 (one) time each day. 3 Active lurasidone (LATUDA) 20 mg tablet 2 tablets (40 mg total). 3 Active Ubrelvy 100 mg tablet Take 1 tablet (100 mg total) by mouth 1 (one) time each day if needed. Half to full tab as needed 5 Active zolpidem (AMBIEN) 10 mg tablet Take 1 tablet (10 mg total) by mouth at bedtime. Max Daily Amount: 10 mg 4 Active riboflavin (VITAMIN B2) 400 mg tablet Take 1 tablet (400 mg total) by mouth 1 (one) time each day in the morning. 4 Active topiramate (TOPAMAX) 50 mg tablet Take 1 tablet (50 mg total) by mouth 1 (one) time each day. 5 Active warfarin (COUMADIN) 5 mg tablet TAKE 1&1/2 TO 2 TABLETS BY MOUTH DAILY. DIRECTED. 180 tablet 1 5 Active ketoconazole (NIZORAL) 2 % cream Apply topically 1 (one) time each day. 30 g 2 5 Active Active Problems Problem Noted Date Diagnosed Date Morbid obesity with BMI of 5 0.0-59.9, adult ([facility] V24, [facility] V28) 01/28/2024 Obstructive sleep apnea 08/11/2021 Overview (01/28/2024): [facility] Home sleep test 07/24/2021; weight 375; BMI 58. AHI 6. 3 central apnea and 32 hypopneas. Average oxygen saturation 91% with oxygen danny 86%. Obstructive sleep apnea-mild with out nocturnal hypoxemia; mostly hypopneas based on 2021 home sleep test. 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, must be bridged for procedures AVM (arteriovenous malformation) 03/09/2008 Overview (01/28/2024): Right leg Urolithiasis 02/23/2008 Overview (01/28/2024): Pyelonephritis 08/31 Pulmonary embolism and infar ction ([facility] V24, [facility] V28) 09/13/2006 Overview (01/28/2024): 08/27/06; IVC filter 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 10/14/2005 Obesity 10/14/2005 Encounters Date Type Department Care Team Description 11/24/2024 Anticoagulation - Warfarin Visit Coumadin [facility] [address] [place] [phone] Haylie Copeland LPN Deep vein thrombosis (DVT) of lower extremity, unspecified chronicity, unspecified laterality, unspecified vein ([facility] V24, [facility] V28) (Primary Dx); Pulmonary embolism and infarction ([facility] V24, [facility] V28) 11/09/2024 Anticoagulation - Warfarin Visit Coumadin [address] [phone] Haylie Copeland LPN Deep vein thrombosis (DVT) of lower extremity, unspecified chronicity, unspecified laterality, unspecified vein ([facility] V24, [facility] V28) (Primary Dx); Pulmonary embolism and infarction ([facility] V24, [facility] V28) 11/01/2024 Anticoagulation - Warfarin Visit Coumadin [address] [phone] Haylie Copeland LPN Deep vein thrombosis (DVT) of lower extremity, unspecified chronicity, unspecified laterality, unspecified vein ([facility] V24, [facility] V28) (Primary Dx); Pulmonary embolism and infarction ([facility] V24, [facility] V28) 10/19/2024 [facility]tico[facility] [place] [phone] Dorothy Anton LPN Deep vein thrombosis (DVT) of lower extremity, unspecified chronicity, unspecified laterality, unspecified vein ([facility] V24, [facility] V28) (Primary Dx); Pulmonary embolism and infarction ([facility] V24, [facility] V28) 10/10/2024 Anticoagulation - Warfarin Visit Coumadin [facility] [address] [place] [phone] Haylie Copeland LPN Deep vein thrombosis (DVT) of lower extremity, unspecified chronicity, unspecified laterality, unspecified vein ([facility] V24, [facility] V28) (Primary Dx); Pulmonary embolism and infarction ([facility] V24, [facility] V28) 10/09/2024 2:15 PM EDT Consult Orthopedic Surgery [facility] [address] [phone] Terrell Neri DPM Dermatophytosis of nail (Primary Dx); Toenail fungus; Tinea pedis of both feet; Pain in toe of right foot; Pain in toe of left foot; Difficulty walking [R26.2] 09/29/2024 [facility] [address] [place] [phone] Haylie Copeland LPN Deep vein thrombosis (DVT) of lower extremity, unspecified chronicity, unspecified laterality, unspecified vein ([facility] V24, [facility] V28) (Primary Dx); Pulmonary embolism and infarction ([facility] V24, [facility] V28) 09/21/2024 Anticoagulation - Warfarin Visit Coumadin [facility] [address] [place], [place] [phone] Haylie Copeland LPN Deep vein thrombosis (DVT) of lower extremity, unspecified chronicity, unspecified laterality, unspecified vein ([facility] V24, [facility] V28) (Primary Dx); Pulmonary embolism and infarction ([facility] V24, [facility] V28) 09/07/2024 Anticoagulation - Warfarin Visit [facility] [address] [facility] [place] [phone] Haylie Copeland LPN Deep vein thrombosis (DVT) of lower extremity, unspecified chronicity, unspecified laterality, unspecified vein ([facility] V24, [facility] V28) (Primary Dx); Pulmonary embolism and infarction ([facility] V24, [facility] V28) 09/07/2024 Telephone [facility] [address] [phone] Haylie Copeland LPN 08/29/2024 [facility] [address] [place] [phone] Haylie Copeland LPN Deep vein thrombosis (DVT) of lower extremity, unspecified chronicity, unspecified laterality, unspecified vein ([facility] V24, [facility] V28) (Primary Dx); Pulmonary embolism and infarction ([facility] V24, [facility] V28) from Last 3 Months Immunizations Name Administration [...] Comments CHOLECYSTECTOMY 12/26/2009 PROCEDURE: HISTORICAL CHOLECYSTECTOMY; COMMENT: Brice SHOULDER SURGERY 06/04/2010 PROCEDURE: HISTORICAL SHOULDER SURGERY; COMMENT: Favio OTHER SURGICAL HISTORY PROCEDURE: [place] ANES MAJOR LOWER ABDOMINAL VESSELS IVC LIGATION; [...] Name Comments Diabetes Father Hypertension Father Other: CA, stroke Father Colon cancer Maternal Grandmother Other: [...] Smoking Tobacco: Former Cigarettes Smokeless Tobacco: Never Tobacco Cessation:Counseling Given: Not Answered Alcohol Use Standard Drinks/Week Comments Yes 0 (1 standard drink = 0.6 oz pur e alcohol) Sex and Gender Information Value Date Recorded Sex Assigned at Not on file Legal Sex Male 12:53 AM EST Gender Identity Not on file Sexual Orientation Not on file Obstetrics History Last Filed Vital Signs Vital Sign Reading Time Taken Comments Blood Pressure 118/72 08/18/2024 5:10 PM EDT Pulse 98 08/18/2024 5:10 PM EDT Temperature 36.9 C (98.4 F) 08/18/2024 5:10 PM EDT Respiratory Rate - - Oxygen Saturation 96% 08/18/2024 5:10 PM EDT Inhaled Oxygen Concentration - - Weight 146 kg (322 lb 3.2 oz) 06/02/2024 2:53 PM EST Height 172.7 cm (5' 8 ) 12/07/2023 4:10 PM EDT Body Mass Index 48.99 12/07/2023 4:10 PM EDT Plan of Treatment Upcoming Encounters Date Type Department Care Team (Late st Contact Info) Description 01/09/2025 2:00 PM EDT Office Visit Orthopedic Surgery - [place] [address] [facility] [address] [place] [phone] Terrell Neri DPM 175 [facility] [address] [place] [address] 02/07/2025 1:30 PM EDT Consult Bariatric Surgery - [place] 175 [facility] [address] [place] [phone] Ahsley Yo PA 175 [facility] [address] [place] [address] Health Maintenance Due Date Last Done Comments Hepatitis A Vaccines (1 of 2 - Risk 2-dose series) 1997 Hepatitis B Vaccines (1 of 3 - 19+ 3-dose series) 1997 Colorectal Cancer Screening: Colonoscopy 03/29/2022 Hepatitis C Screening 03/29/2022 Social Influencers of Health Screening 03/29/2022 COVID-19 Vaccine ( season) 2023 Depression Screening 04/26/2024 06/25/2023 Influenza Vaccine (#1) 2024 , 01/25/2017, 04/18/2009, Additional history exists Cholesterol Screening (Lipid Panel) 06/02/2029 06/02/2024, 06/25/2023 DTaP,Tdap,and Td Vaccines (3 - Td or Tdap) 01/04/2030 01/05/2020, 01/24/2009 HIV Screening Completed 12/15/2004 Pneumococcal Vaccine: Pediatrics (0 to 5 Years) and At-Risk Patients (6 to 49 Years) Aged Out 12/31/2013, 03/13/2008 No longer [...] patient's age to complete this topic Meningococcal B Vaccine Aged Out No l onger eligible based on patient's age to complete this topic RSV Immunization Patients Under 20 months Aged Out No longer eligible based on patient's age to complete this topic Varicella Vaccines Aged Out No longer eligible based on patient's age to complete this topic Procedures Procedure Name Priority Date/Time Associated Diagnosis Comments PROTHROMBIN TIME WITH INR Routine 11/23/2024 2:33 PM EDT Deep vein thrombosis (DVT) of lower extremity, unspecified chronicity, unspecified laterality, unspecified vein (CMS/HCC V24, CMS/HCC V28) Pulmonary embolism and infarction (CMS/HCC V24, CMS/HCC V28) PROTHROMBIN TIME WITH INR Routine 11/08/2024 4:40 PM EDT Deep vein thrombosis (DVT) of lower extremity, unspecified chronicity, unspecified laterality, unspecified vein (CMS/HCC V24, CMS/HCC V28) Pulmonary embolism and infarction (CMS/HCC V24, CMS/HCC V28) PROTHROMBIN TIME WITH INR Routine 11/01/2024 11:07 AM EDT Deep vein thrombosis (DVT) of lower extremity, unspecified chronicity, unspecified laterality, unspecified vein (CMS/HCC V24, CMS/HCC V28) Pulmonary embolism and infarction (CMS/HCC V24, CMS/HCC V28) PROTHROMBIN TIME WITH INR Routine 10/19/2024 1:05 PM EDT Deep vein thrombosis (DVT) of lower extremity, unspecified chronicity, unspecified laterality, unspecified vein (CMS/HCC V24, CMS/HCC V28) Pulmonary embolism and infarction (CMS/HCC V24, CMS/HCC V28) VITAMIN B6 Routine 10/09/2024 12:34 PM EDT Paresthesia of skin Pyridoxine deficiency PROTHROMBIN TIME WITH INR Routine 10/09/2024 12:34 PM EDT Deep vein thrombosis (DVT) of lower extremity, unspecified chronicity, unspecified laterality, unspecified vein (CMS/HCC V24, CMS/HCC V28) Pulmonary embolism and infarction (CMS/HCC V24, CMS/HCC V28) PROTHROMBIN TIME WITH INR Routine 09/29/2024 10:09 AM EDT Deep vein thrombosis (DVT) of lower extremity, unspecified chronicity, unspecified laterality, unspecified vein (CMS/HCC V24, CMS/HCC V28) Pulmonary embolism and infarction (CMS/HCC V24, CMS/HCC V28) PROTHROMBIN TIME WITH INR Routine 09/21/2024 11:16 AM EDT Deep vein thrombosis (DVT) of lower extremity, unspecified chronicity, unspecified laterality, unspecified vein (CMS/HCC V24, CMS/HCC V28) Pulmonary embolism and infarction (CMS/HCC V24, CMS/HCC V28) PROTHROMBIN TIME WITH INR Routine 09/06/2024 3:39 PM EDT Deep vein thrombosis (DVT) of lower extremity, unspecified chronicity, unspecified laterality, unspecified vein (CMS/HCC V24, CMS/HCC V28) Pulmonary embolism and infarction (CMS/HCC V24, CMS/HCC V28) PROTHROMBIN TIME WITH INR Routine 08/29/2024 12:15 PM EDT Deep vein thrombosis (DVT) of lower extremity, unspecified chronicity, unspecified laterality, unspecified vein (CMS/HCC V24, CMS/HCC V28) Pulmonary embolism and infarction (CMS/HCC V24, CMS/HCC V28) LIPID PANEL WITH REFLEX TO DIRECT LDL Routine 06/02/2024 4:14 PM EST Encounter for lipid screening for cardiovascular disease DEPRESSION SCREENING Routine 06/25/2023 HIV SCREENING Routine 12/15/2004 from Last 3 Months or Most Recently Relevant to Health Maintenance Results * (ABNORMAL) Prothrombin time with INR (11/23/2024 2:33 PM EDT) Only the most recent of9 resultswithin the time period is included. [facility] Protime 32.8(H) 10.6 - 13.9 sec LAB COAGULATION METHOD 11/23/2024 6:46 PM EDT [facility] INR 2.7 LAB COAGULATION METHOD 11/23/2024 6:46 PM EDT [facility] Blood Venous blood specimen / Unknown Venipuncture / Unknown 11/23/2024 2:33 PM EDT 11/23/2024 2:33 PM EDT Latoya Schmidt DO LAB BLOOD ORDERABLES Final Res ult [facility] [address] [place] [address], [place] [phone] * (ABNORMAL) Vitamin B6 (10/09/2024 12:34 PM EDT) [facility] Vitamin B6 (Pyridoxine) Level 145(H) 5 - 50 ug/L 10/13/2024 12:34 PM EDT [facility] Comment: This test was developed and the performance characteristics determined by [facility]. It has not been cleared or approved by the FDA. The laboratory is regulated under CLIA as qualified to perform high-complexity testing. This test is used for patient testing purposes. It should not be regarded as investigational or for research. Test performed at [facility], [address] , [place] [address] Calista Westfall MD, PhD - [employer] Blood Venous blood specimen / Unknown Venipuncture / Unknown 10/09/2024 12:34 PM EDT 10/09/2024 12:35 PM EDT Angela Khan [facility] BLOOD ORDERABLES Lynsey l Result [facility] [address] [place] [address] * (ABNORMAL) Lipid panel with reflex to direct LDL (06/02/2024 4:14 PM EST) Cholesterol 203(H) 0 - 200 mg/dL LAB CHEMISTRY METHOD 06/02/2024 7:14 PM EST [facility] Triglycerides 97 0 - 150 mg/dL LAB CHEMISTRY METHOD 06/02/2024 7:14 PM EST [facility] HDL 43 >=40 mg/dL LAB CHEMISTRY METHOD 06/02/2024 7:14 PM EST [facility] LDL Calculated 141(H) 0 - 100 mg/dL LAB CHEMISTRY METHOD 06/02/2024 7:14 PM EST [facility] VLDL Cholesterol Kit 19.4 mg/dL LAB CHEMISTRY METHOD 06/02/2024 7:14 PM [facility] Non HDL Chol. (LDL+VLDL) 160(H) <145 mg/dL LAB CHEMISTRY METHOD 06/02/2024 7:14 PM [facility] Chol/HDL Ratio 4.7(H) 0.0 - 4.4 LAB CHEMISTRY METHOD 06/02/2024 7:14 PM [facility] Blood Venous blood specimen / Unknown Venipuncture / Unknown 06/02/2024 4:14 PM EST 06/02/2024 4:14 PM EST Aida Rubio NP LAB BLOOD ORDERABLES Final Resul t [facility] [address] [place] [address], * Depression Screening (06/25/2023) Pathologist [facility] Depression Screening abstracted Historical Provider HEALTH MAINTENANCE Final Result * HIV Screening (12/15/2004) Pathologist [facility] HIV Screening abstracted Historical Provider HEALTH MAINTENANCE Final Result from Last 3 Months or Most Recently Relevant to Health Maintenance Insurance [facility] Member Subscriber Plan / Payer (Ef fective 2023-Present) Name:DOMINGO DIOR Relation to Subscriber:Self Name:Domingo Dior Payer ID:[id number] Group ID:[id number] Type:Not on file Address: [place] [address] [address] [id number] Care Teams Outpatient Surgery Rn Relationship Specialty Start Date End Date Latoya Schmidt DO [address] [facility] [place] [address] PCP - General 11/17/22
--- OUTSIDE RECORDS SUMMARY | 2024-11-27 07:54 | XMS_ITS | Clinical Summary ---
Author Organization [facility] Facility Address [address] [address] Care Team Providers Care Wire Drawer Name Role Phone Miguel Angel Lady S Primary Care Provider [phone] Social History Tobacco Use Types Packs/Day Years [...] - 19+ 3-dose series) 1997 Pneumococcal Vaccine: Peds ( 0 to 5 Years) and At-Risk Patients (6 to 49 Years) (3 of 3 - PCV) 12/31/2014 12/31/2013, 03/13/2008 Influenza Vaccine (#1) 2024 01/05/2020 Insurance Medicaid Care Teams Wire Drawer Relationship Specialty Start Date End Date Lady Michelle [address] [place] [address] PCP - General Internal Medicine 11/28/21
[2024-11-27 08:11] VITALS: BP 130/78; PULSE 78; O2SAT 96; BMI 51.0
--- NOTE | 2024-11-27 08:11 | MHC.OFFVIS ---
Vital Signs 11/27/24 08:11 Height 5 ft 8 in Weight 335 lb 8 oz BMI 51.0 BP 130/78 Blood Pressure Location Rt brachial Position Sitting Pulse 78 Pulse Source Pulse Oximeter Pulse Oximetry (%) 96 Oxygen Delivery Method Room Air Intake Visit Reasons: 6 mnts f/u Intake Note: Patient presents follow up NARAYAN medication. Labs in chart [employer] Required: No Accompanied by: Self / Same As Patient Allergies ibuprofen Allergy (Intermediate, Verified 11/27/24 08:13) dermatitis chlorine Allergy (Uncoded 11/27/24 08:13) Rash Medication List - Last Reconciled 11/27/24 by CINDY Wong diclofenac sodium 1% 2 grams topical QID gabapentin 300 mg PO BEDTIME hydroxyzine pamoate 100 mg PO BEDTIME lurasidone 40 mg PO DAILY magnesium oxide 400 mg PO BEDTIME 90 days omeprazole 20 mg PO DAILY oxcarbazepine 450 mg PO BID pyridoxine (vitamin B6) 50 mg PO BID 30 days riboflavin (vitamin B2) 400 mg PO QAM 90 days ropinirole 2 mg PO BEDTIME topiramate 50 - 100 mg (1 - 2 x 50 mg) PO BEDTIME 90 days torsemide 20 mg PO DAILY ubrogepant (Ubrelvy) 50 - 100 mg (0.5 - 1 x 100 mg) PO ONCE PRN 30 days warfarin 5 mg PO DAILY zolpidem 10 mg PO BEDTIME PRN Do you need a note to return to daycare/school/sports/work: No HPI Comments Details: 44-yr-old male presents for f/u televeideo visit of migraine and sleep s/s. Pt denies any significant interval medical changes. He is scheduled to see ENT in Jan. Interval labs were notable for elevetaed vit B6 150s- pt was advised to hold B6 supplement for now. He reports he generally his sleep varies, typically fragmenetd sleep between 3-12 hours. If he does not take his sleep medications, he will sleep 3 hours. If he takes all his medications and has not been sleeping well, then he will sleep much longer. He states his sleep is fragmented d/t being a light sleeper, bothersome chronic nasal congestion, RLS s/s. RLS S/S as urge to move the legs, almost to the point he shaking, creepy-crawling sensation, leg cramps, in need to get up and move. He has not had recent nutritional, iron studies, ferritin, labs in some time. He is on chronic warfarin therapy. Sleep tx's: Ropinirole 2mg qhs for RLS, which is helpful. Does have compulsive shopping at times. Gabapentin 300mg qhs for pain. Ambien at times- does not report recent parasomnias, but in the past has slept shopped on-line. Patient reports Pt reports he is having 3-4 migraine attacks per week, lasting 1 hr to 6 hrs. The migraine attack are his typical migraine, the pain tends to be in the back of his head, may be bilateral or more right sided. He has recently noticed some occipital regional and right facial numbness, does endorse increased neck tightness and clicking. He started topiramate 50 mg q.h.s., tolerating well. He states Ubrelvy is effective. Baseline headache characteristics: Variable. Can be in eyes, temples, forehead, or occipital. Throbbing and pressure. A/w blurred vision, diplopia, foggy vision, photophobia, some osmophobia, nausea, occasional vomiting, confusion, external spinning dizziness, sometimes worsening nasal congestion, activity intolerance- depending on severity. Duration can be hours up to 7 days. [facility] Medical History Cholelithiasis DVT (deep venous thrombosis) Pulmonary embolism Alcohol abuse Restless legs syndrome (RLS) Obesity Surgical History History of tonsillectomy H/O colonoscopy History of surgery on lower extremity H/O shoulder surgery History of laparoscopic cholecystectomy Family History Mother Diabetes Father Diabetes Hypertension Stroke Maternal Grandmother Colon cancer Paternal Grandfather Lung cancer Social History Alcohol intake: current Alcohol intake frequency: holidays/special occasions only Patient Tobacco Use Status: Former Tobacco user Substance Use Type: Marijuana Physical Exam Vital Signs: Last Vital Signs Pulse 78 11/27/24 08:11 BP 130/78 11/27/24 08:11 Pulse Ox 96 11/27/24 08:11 Oxygen Delivery Method Room Air 11/27/24 08:11 BMI result Body Mass Index 51.0 Const General: cooperative and no acute distress Orientation/consciousness: patient oriented x3 Resp Effort & Inspection: normal respiratory effort and able to speak in complete sentences Neuro Other: Bilateral posterior cervical tightness. Cervical ROM: slightly decreased, more so in extension and left lateral rotation. Inder Spurling: elicits shoting pain on right side of neck- lower neck through occipital region DTRs dulled throughout Steady gait w/ cane General: patient oriented x3 Cognition (Neuro): normal cognition Psych Appearance: grossly normal Mental Status: mental status grossly normal Speech and movement: Normal speech and movement present Affect: normal affect Attitude: cooperative Assessment & Plan Assessment & Plan (1) Obstructive sleep apnea: Code(s): G47.33 - Obstructive sleep apnea (adult) (pediatric) Category: Medical (2) Chronic nasal congestion: Code(s): R09.81 - Nasal congestion Category: Medical (3) Chronic migraine without aura: Code(s): G43.709 - Chronic migraine without aura, not intractable, without status migrainosus Category: Medical Qualifiers: Status migrainosus presence: without status migrainosus Intractability: not intractable Qualified Code(s): G43.709 - Chronic migraine without aura, not intractable, without status migrainosus (4) Restless legs syndrome (RLS): Code(s): G25.81 - Restless legs syndrome Category: Medical (5) 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 Try adding background noise machine, continue using fan in bedroom. May benefit from trying nosie cancelling ear plugs, such as loop ear plugs when sleeping. Add Gabapentin 100-300mg q evening (approx 2-3 hrs before bedtime) to optimize RLS s/s May continue gabapentin 300 mg q.h.s., ropinirole 2 mg q.h.s., and prn ambien 10 mg q.h.s. for now- Pt advised dopamine agonist can cause/increase compulsive behaviors, and zolpidem can increase risk for parasomnia- continueto monitor sleep shopping and for any increase in compulsive behaviors. Previously mailed patient a list of sleep resources, which includes information on recent a.m. publication ? Navigating life with restless leg ?by Dr. Cote. [place] cbc, cmp, vot b6- in 3 months- lab slips given to pt Future considerations: Zepbound- would need referral to weight management clinic. For overall headache management: Discussed importance of good self-care, including but not limited to maintaining a healthy diet, adequate fluid intake, adequate sleep, and engaging in regular physical activity. For cervicalgia and right occipital/numbness not always a/w headache: XR- c- spine. Increase [place] as above. Future consideration- PT. For acute headache treatment: Continue Ubrogepant (Ubrelvy) 100mg tab, 1/2 - 1 tab (50-100mg) at onset of headache, may repeat in 2 hours. Max of 2 tabs (200mg) per 24 hours. May adjunct with OTC Tylenol 650-1000mg q 4-6 hours prn. Previous acute migraine medication trials: Sumatriptan- not always effective. Acute migraine medication contraindications: All triptans and DHE d/t h/o a-fib, DVTs/PE, HTN. For headache prevention medication: Discussed that preventative medications should be taken routinely as prescribed for best effect, it may take several weeks for full effect to take effect. Continue Riboflavin 400mg qam Continue Magnesium 400mg qhs Continue Topiramate 50mg. Add Gabapentin 100-300mg q evening as above. May continue Gabapentin 300mg qhs- for sleep and headache. Previous migraine prevention medication trials: none other Migraine prevention medication contraindications: would be cautious w/ any tx that may induce wt gain- as pt is actively participating in a wt loss program. Orders: Orders Comprehensive [place]. Panel Fast 3 Months E67.2 - Megavitamin-B6 syndrome, Z79.01 - exterminator helper (current) use of anticoagulants Vitamin B1 3 Months E67.2 - Megavitamin-B6 syndrome, Z79.01 - [facility] (current) use of anticoagulants Vitamin B6 3 Months D64.9 - Anemia, unspecified, E67.2 - Megavitamin-B6 syndrome, Z79.01 - exterminator helper (current) use of anticoagulants Complete Blood Count Auto Diff 3 Months E67.2 - Megavitamin-B6 syndrome, Z79.01 - exterminator helper (current) use of anticoagulants XR cervical spine w flex/ext Today M54.2 - Cervicalgia Medications: New gabapentin q evening (continue bedtime 300mg dose) 100 - 300 mg (1 - 3 x 100 mg) PO DAILY 90 caps 3RF 30 days Changed From topiramate 50 - 100 mg (1 - 2 x 50 mg) PO BEDTIME 90 days 180 tabs 1RF To topiramate 50 mg PO BEDTIME 90 tabs 1RF 90 days Refilled ubrogepant (Ubrelvy) take at onset of migraine, may repeat in 2hrs (may take w/ Tylenol) 50 - 100 mg (0.5 - 1 x 100 mg) PO ONCE PRN 16 tabs 6RF migraine headache 30 days On Hold pyridoxine (vitamin B6) Hold Comment: Dose Change 50 mg PO BID 60 tabs 3RF 30 days Coding Level of Care Code Est Pt Level 4 (72955) Diagnoses Obstructive sleep apnea G47.33 Chronic nasal congestion R09.81 Chronic migraine without aura without status migrainosus, not intractable G43.709 Status migrainosus presence: without status migrainosus Intractability: not intractable Restless legs syndrome (RLS) G25.81 Hypervitaminosis B6 E67.2
== END 2024-11-27 08:57 | disposition home or self-care (01) ==
LOC: HO.HSMS 07:52
PROVIDERS: PCP Internal Medicine; Visit Provider Nurse Practitioner Family
DX: G47.33 Obstructive sleep apnea (adult) (pediatric) (principal); R09.81 Nasal congestion; G43.709 Chronic migraine without aura, not intractable, without status migrainosus; G25.81 Restless legs syndrome; E67.2 Megavitamin-B6 syndrome
CPT/HCPCS: 99214

== ENCOUNTER → 2024-11-27 07:51 | Outpatient (BNVA) | payer OTHER, SELFPAY | PROVIDERS: PCP Internal Medicine; Visit Provider Nurse Practitioner Family | DX: G47.33 Obstructive sleep apnea (adult) (pediatric) (principal); R09.81 Nasal congestion; G43.709 Chronic migraine without aura, not intractable, without status migrainosus; G25.81 Restless legs syndrome; E67.2 Megavitamin-B6 syndrome | CPT/HCPCS: 99212 ==